=== PATIENT | male | born 2000 | race Caucasian/White ===

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

== ENCOUNTER 2022-04-27 16:02 | Emergency (ER) | payer OTHER, SELFPAY ==
[2022-04-27 16:05] VITALS: BP 115/75; PULSE 60; RESP 17; TEMP 36.5; O2SAT 100; BMI 22.0
[2022-04-27 16:42] VITALS: O2SAT 96
--- NOTE | 2022-04-27 16:52 | EDS_ITS ---
HPI History of Present Illness Chief Complaint: Shortness of Breath Narrative Narrative: 21-year-old male presenting with dyspnea on exertion and chest tightness as well as development of a fever yesterday. Patient states that symptoms really started on Monday which is about 5 days ago. Patient does not have a significant cough. He does have body aches and chills. Patient has a history of asthma as well. He states he has been to rapid COVID test overnight and went to the urgent care today where they did a PCR test. They referred him to the ER for further evaluation. Patient has no history of cardiac disease. He has no DVT/PE risk factors. He does have a history of asthma but is not feeling like he is wheezing. Patient states other than this he is otherwise healthy. He has been eating and drinking normally. He is making normal urine and stool [facility] Medical History Migraines Home Medications albuterol sulfate 90 mcg/actuation aerosol inhaler 90 mcg inhalation Q4H PRN Shortness Of Breath 04/27/22 [History Last Taken Unknown] Allergy/AdvReac Type Severity Reaction Status Date / Time ceftriaxone [From Rocephin] Allergy Hives Verified 04/27/22 16:03 Social History Smoking Status: Never smoker ROS ROS ED Constitutional Constitutional ED: Reports chills and fever(s) Eyes Eyes: Denies change in vision or diplopia ENT ENT ED: Denies rhinorrhea or sore throat Cardiovascular Cardiovascular: Reports chest pain Respiratory/Chest Respiratory/Chest: Reports cough and dyspnea Gastrointestinal Gastrointestinal: Denies abdominal pain, nausea or vomiting Genitourinary Genitourinary ED: Denies dysuria or hematuria Musculoskeletal Musculoskeletal: Reports myalgias; Denies arthralgias Integumentary Denies abscess or Abrasions Neurologic Neurologic: Reports headache(s); Denies paresthesias Psychiatric Psychiatric: Denies anxiety or depression EXAM Physical Exam Const Vital Signs: 04/27/22 16:05 04/27/22 16:42 Temperature 97.7 F L Temperature Source Temporal Pulse Rate 60 Respiratory Rate 17 Respiratory Effort Short of Breath Respiratory Depth Normal Respiratory Pattern Normal Blood Pressure 115/75 Blood Pressure Mean 88 Pulse Ox 100 Oxygen Delivery Method Room Air Room Air Positive well nourished General Appearance ED: NAD; Negative for pallor HEENT Reports moist mucous membranes atraumatic Eyes PERRL and EOMs intact bilaterally General Eye ED: Negative for pale conjunctiva or scleral icterus Neck no lymphadenopathy and supple Resp normal respiratory effort and clear to auscultation bilaterally Auscultation: Negative for rales, rhonchi or wheezes Cardio regular rate and regular rhythm GI non-tender Back/Spine no CVA tenderness Neuro oriented x3 and CN's II-XII intact bilaterally Sensorium / Orientation: alert Speech: speech normal Motor Exam: strength 5/5 throughout Psych mental status grossly normal Skin no wounds and skin turgor normal General Skin Exam: Negative for jaundice or pallor MDM MDM MDM Narrative Medical decision making narrative: Patient presents with chest comfort and shortness of breath which has been going on for about 4 days. He developed a fever last night. He did 2 rapid COVID test at home which were negative overnight. He has a PCR test pending. His girlfriend is in the room and states he just came out of quarantine for COVID and they believe the most likely diagnosis is COVID-19. In regards to his chest pain he does not have any cardiac history and no believe this is cardiac related chest pain. He is PERC negative and Wells negative for PE. Blood pressure for DVT -2. I discussed this at length with him and he states that his mother is the one that is more concerned than he is and that is why he went to the urgent care. He had a discussion with her and she states that he has been prone to pneumonia in the past. Through shared decision making we decided we would do a chest x-ray and if this is normal he would wait at home for his COVID PCR test. Chest x-ray 2 views on my interpretation shows no acute cardiopulmonary process and radiologist agree. Patient will be discharged home. He is to wait his COVID testing. He is counseled to alternate Tylenol ibuprofen for fever and body aches. He is to drink plenty of fluids. Return precautions discussed. Impression: 1. Viral syndrome Lab Data Attestation: I reviewed the patient's lab results. Radiography Diagnostic Testing: Clinical Impression(s) from Imaging Studies Chest X-Ray 04/27/22 17:02 IMPRESSION: There are no acute findings. Electronically Signed: Ki Salazar MD at 17:29 EDT Reading Location ID and State: [facility] [place] / [place] , Service support , Discharge Plan Triage Chief Complaint: Shortness of Breath ED Provider: Baljit Alex Dx/Rx/DC Orders Instructions: ED Viral Syndrome (Adult) Prescriptions: No Action albuterol sulfate 90 mcg/actuation HFA aerosol inhaler 90 mcg INHALATION Q4H PRN (Reason: Shortness Of Breath) Label Comments: TAKE 2 PUFFS BY MOUTH EVERY 4 HOURS NEEDED Primary Care Provider: Care Physician,No Primary Referrals: [facility] Doctor,Out of [Non-Staff] - Disposition Disposition: Home, Self Care
--- NOTE | 2022-04-27 17:02 | RAD_ITS ---
STUDY: X-RAY CHEST REASON FOR EXAM: Male, 21 years old. CHEST PAIN fever TECHNIQUE: XR Chest 2 Views COMPARISON: None FINDINGS: There is no demonstrated pleural abnormality. Normal size heart. Normal mediastinum and jordana. Normal visualized pulmonary arteries. Normal visualized aortic arch and descending thoracic aorta. Normal visualized thoracic spine. Normal visualized ribs, clavicles, and shoulders. There is no demonstrated abnormality of the visualized soft tissue structures of the upper abdomen. RAD/Chest PA and Lateral IMPRESSION: There are no acute findings. Electronically Signed: Ki Salazar MD at 17:29 EDT ,
[2022-04-27 18:04] VITALS: RESP 14
[2022-04-27 18:14] VITALS: RESP 16; O2SAT 100
== END 2022-04-27 18:15 | disposition home or self-care (01) ==
PROVIDERS: Emergency Provider Student in an Organized Health Care Education/Training Program; Visit Provider Student in an Organized Health Care Education/Training Program
DX: B34.9 Viral infection, unspecified (principal); R06.02 Shortness of breath
CPT/HCPCS: 71046; 99282